=== PATIENT | female | born 2000 | race Hispanic/Latino ===

== ENCOUNTER 2021-06-11 08:41 | Emergency (ER) | payer OTHER, SELFPAY ==
[2021-06-11 08:58] VITALS: BP 179/80; PULSE 102; RESP 16; TEMP 37.1; O2SAT 99
--- NOTE | 2021-06-11 09:26 | ED.EAR ---
HPI - Ear Problem General Chief complaint: Ear Stated complaint: ear pain Source: patient, RN notes reviewed and old records reviewed Mode of arrival: ambulatory Limitations: no limitations History of Present Illness HPI Narrative: 20 year old female who presents to [facility] care with complaints of right ear pain today since 299. Patient reports that since the 04 of June she has had headache, sore throat, cough,congestion and sinus drainage, and some eye drainage. She reports that she has been using some antibiotic eye drops. Patient reports that she has had COVID vaccinations but no Booster has not had flu shot. Patient reports that she has had low grade fever has also taken some Tylenol, denies any acute chills or body aches. MD Complaint: ear pain Location: right ear Related Data Allergies Allergy/AdvReac Type Severity Reaction Status Date / Time No Known Allergies Allergy Verified 06/11/21 09:10 Review of Systems Review of Systems: CONSTITUTIONAL: Positive for low grade fever,no chills, or sweats. EYES: Denies visual changes, redness, some discharge from eyes, no pain ENT:Positive for rhinorrhea, congestion, sore throat,right otalgia. CARDIOVASCULAR: Denies chest pain, palpitations, or edema. RESPIRATORY: Positive for cough no dyspnea. GASTROINTESTINAL: Denies abdominal pain, nausea, vomiting, or diarrhea. GENITOURINARY: Denies dysuria or hematuria. SKIN: Denies rash or itching. MUSCULOSKELETAL: Denies back pain, joint pain, or myalgia. NEUROLOGIC:Positive for headache, no numbness, or weakness. PSYCHIATRIC: Denies anxiety or depression. All systems reviewed & are unremarkable except as noted in HPI and below PMFSH Past Medical History Medical History (Updated 06/12/21 @ 11:49 by Katrina Price NP) PCOS (polycystic ovarian syndrome) Surgical History Surgical History (Updated 06/12/21 @ 11:50 by Katrina Price NP) No history of previous surgery Family History Family History (Updated 06/12/21 @ 11:49 by Katrina Price NP) Father Diabetes mellitus Hypertension Grandparent Diabetes mellitus Breast cancer Mother Hypertension Social History Social History (Updated 06/12/21 @ 11:48 by Katrina Price NP) Smoking status: Never smoker Alcohol intake: never Substance use: never Living arrangements: with family Gender identity (if verbalized by the patient): Female Comments At time of signature, agree with nursing past medical, surgical, social and family history. There is no relevant family history pertinent to the presenting complaint Exam Narrative: GENERAL: Well-appearing, well-nourished, and in no acute distress. HEAD: Normocephalic, atraumatic. EYES: PERRLA and EOMI. no conjunctiva redness, some clear to minimal white eye drainage noted no pain or vision changes ENT: Nares clear, clear rhinorrhea no epistaxis. Mucous membranes moist.Right TM red and bulging no drainage noted, Left TM normal with good light reflex, throat red with no lesions or exudates, no tonsil enlargement. post nasal drainage noted. NECK: Supple.no lymphadenopathy CHEST: Clear to auscultation. No respiratory distress.dry cough SAO2 99% on room air HEART: Regular rate and rhythm. No murmur heard. Normal peripheral pulses. ABDOMEN: Soft, nontender, nondistended, normal active bowel sounds. EXTREMITIES: Normal range of motion. No edema. SKIN: Warm, dry, no rash. NEURO: No focal deficits. Alert and oriented x3. Course Course Level of Care: Express Care Visit Vital Signs Vital signs: Vital Signs Temperature 37.1 C 06/11/21 08:58 Pulse Rate 102 H 06/11/21 08:58 Respiratory Rate 16 06/11/21 08:58 Blood Pressure 179/80 H 06/11/21 08:58 Pulse Oximetry 99 06/11/21 08:58 Temperature 37.1 C 06/11/21 08:58 Pulse Rate 102 H 06/11/21 08:58 Respiratory Rate 16 06/11/21 08:58 Blood Pressure 179/80 H 06/11/21 08:58 Pulse Oximetry 99 06/11/21 08:58 Medical Decision Rene
== END 2021-06-11 10:00 | disposition home or self-care (01) ==
PROVIDERS: Emergency Provider Registered Nurse
DX: H66.91 Otitis media, unspecified, right ear (principal); Z20.822 Contact with and (suspected) exposure to COVID-19
CPT/HCPCS: 87426; 99213; C9803; G0463

== ENCOUNTER 2023-07-23 10:18 | Emergency (ER) | payer OTHER, SELFPAY ==
[2023-07-23 10:35] VITALS: BP 143/74; PULSE 78; RESP 18; TEMP 36; O2SAT 99
--- NOTE | 2023-07-23 11:39 | ED.GENADULT ---
HPI - General Adult General Chief complaint: Upper Respiratory Infection Stated complaint: Sore Throat Source: patient Mode of arrival: ambulatory Limitations: no limitations History of Present Illness HPI narrative: Patient presents for evaluation of sore throat for last 2 days. No fever, chills, nausea, vomiting, diarrhea, cough, shortness of breath, otalgia. She states one of her friends was recently ill but she is not sure what symptoms the friend was experiencing. She does not smoke. Related Data Home Medications Medication Instructions Recorded Confirmed Control 07/23/23 Allergies Allergy/AdvReac Type Severity Reaction Status Date / Time No Known Allergies Allergy Verified 07/23/23 10:27 Review of Systems Review of Systems: CONSTITUTIONAL: Denies fever, chills, or sweats. EYES: Denies visual changes, redness, or discharge. ENT: Reports sore throat. Denies rhinorrhea, congestion, or otalgia. CARDIOVASCULAR: Denies chest pain, palpitations, or edema. RESPIRATORY: Denies cough or dyspnea. GASTROINTESTINAL: Denies abdominal pain, nausea, vomiting, or diarrhea. GENITOURINARY: Denies dysuria or hematuria. SKIN: Denies rash or itching. MUSCULOSKELETAL: Denies back pain, joint pain, or myalgia. NEUROLOGIC: Denies headache, numbness, dizziness, or weakness. PSYCHIATRIC: Denies anxiety or depression. [facility] Past Medical History Medical History PCOS (polycystic ovarian syndrome) Surgical History Surgical History No history of previous surgery Family History Family History (Updated 06/12/21 @ 11:49 by Katrina Price NP) Father Diabetes mellitus Hypertension Grandparent Diabetes mellitus Breast cancer Mother Hypertension Social History Social History Smoking status: Never smoker Alcohol intake: never Substance use: never Living arrangements: with family Gender identity (if verbalized by the patient): Female Exam Narrative: GENERAL: Well-appearing, well-nourished, and in no acute distress. HEAD: Normocephalic, atraumatic. EYES: PERRLA and EOMI. ENT: Nares clear, no rhinorrhea or epistaxis. Mucous membranes moist. Bilateral tonsillar enlargement with erythema and white exudate. Uvula is midline. Bilateral TMs pearly olivier nonbulging NECK: Supple. No adenopathy or masses. No carotid bruits or JVD CHEST: Clear to auscultation. No respiratory distress. No wheezes rales or rhonchi HEART: Regular rate and rhythm. No murmur heard. Normal peripheral pulses. ABDOMEN: Soft, nontender, nondistended, normal active bowel sounds. EXTREMITIES: Normal range of motion. No edema. SKIN: Warm, dry, no rash. NEURO: No focal deficits. Alert and oriented x3. PSYCH: Normal mood and affect. Course Course Emergency Course: This is a 22 old female who presented for evaluation of sore. Strep negative however through shared decision making opted to proceed with abx therapy. Increase hydration. OTC medications for symptom management. Follow up with primary provider. Go to the ER for worsening symptoms. Pt in agreement with plan of care. Level of Care: Express Care Visit Vital Signs Vital signs: Vital Signs Temperature 36.0 C L 07/23/23 10:35 Pulse Rate 78 07/23/23 10:35 Respiratory Rate 18 07/23/23 10:35 Blood Pressure 143/74 H 07/23/23 10:35 Pulse Oximetry 99 07/23/23 10:35 Oxygen Delivery Room Air 07/23/23 10:35 Temperature 36.0 C L 07/23/23 10:35 Pulse Rate 78 07/23/23 10:35 Respiratory Rate 18 07/23/23 10:35 Blood Pressure 143/74 H 07/23/23 10:35 Pulse Oximetry 99 07/23/23 10:35 Oxygen Delivery Room Air 07/23/23 10:35 Medical Decision Making Vital Signs Vital Signs: Vital Signs Temperature 36.0 C L 07/23/23 10:35 Pulse Rate 78
== END 2023-07-23 11:19 | disposition home or self-care (01) ==
PROVIDERS: Emergency Provider Nurse Practitioner
DX: J02.9 Acute pharyngitis, unspecified (principal)
CPT/HCPCS: 87081; 87880; 99213; G0463

== ENCOUNTER 2024-04-11 12:17 | Emergency (ER) | payer OTHER, SELFPAY ==
[2024-04-11 12:20] VITALS: BP 146/84; PULSE 83; RESP 20; TEMP 36.7; O2SAT 100
--- NOTE | 2024-04-11 12:35 | ED_ITS ---
HPI - URI/Sore Throat General Chief Complaint: Upper Respiratory Infection Stated Complaint: Ear infection/swollen tonsils History of Present Illness HPI Narrative: Patient presents with a sore throat and left ear pain. Patient states her symptoms have been going on about 6 days. She is taking multiple [id number] medications for her symptoms. No shortness of breath no chest pain no trouble swallowing no drooling. Related Data Home Medications Medication Instructions Recorded Confirmed Control 07/23/23 propranolol 07/23/23 Allergies Allergy/AdvReac Type Severity Reaction Status Date / Time No Known Allergies Allergy Verified 07/23/23 10:27 Review of Systems Review of Systems: CONSTITUTIONAL: Denies chills, or sweats. Reports fever and generalized body aches EYES: Denies visual changes, redness, or discharge. ENT: Denies otalgia. Reports nasal congestion runny nose and sore throat CARDIOVASCULAR: Denies chest pain, palpitations, or edema. RESPIRATORY: Denies dyspnea. Reports occasional cough GASTROINTESTINAL: Denies abdominal pain, nausea, vomiting, or diarrhea. GENITOURINARY: Denies dysuria or hematuria. SKIN: Denies rash or itching. MUSCULOSKELETAL: Denies back pain, joint pain, or myalgia. Reports generalized body aches NEUROLOGIC: Denies headache, numbness, or weakness. PSYCHIATRIC: Denies anxiety or depression. [facility] Past Medical History Medical History PCOS (polycystic ovarian syndrome) Surgical History Surgical History No history of previous surgery Family History Family History (Updated 06/12/21 @ 11:49 by Katrina Price NP) Father Diabetes mellitus Hypertension Grandparent Diabetes mellitus Breast cancer Mother Hypertension Social History Social History Smoking status: Never smoker Alcohol intake: never Substance use: never Living arrangements: with family Gender identity (if verbalized by the patient): Female Comments At time of signature, agree with nursing past medical, surgical, social and family history. There is no relevant family history pertinent to the presenting complaint Exam Narrative: The patient is a well-developed, well-nourished in no acute distress. SKIN: Skin is warm and dry without erythema, swelling or exudate. There is good turgor. No tenting. HEAD: Atraumatic. Normocephalic. No temporal or scalp tenderness. EYES: Moist and bright. Sclera and conjunctivae normal. No discharge. PERRLA. Extraocular motions intact. Gross visual acuity intact. EARS: Pinna is normal shape and contour. Clear external auditory canals. Right TM pearly valverde with good cone of light, no erythema or suppuration. Left TM cloudy with mild erythema to canal Bilateral cerumen noted no gross hearing deficit. NOSE: pink, moist mucosa with good air movement. Clear rhinorrhea without nasal flaring. Septum midline. Mouth: moist mucous membranes. THROAT; mild erythema noted to posterior oropharynx with moderate postnasal drainage. Without exudate or ulceration.. Uvula midline. Normal movement of soft palate. NECK: Supple and nontender with full range of motion without discomfort. No meningeal signs. LUNGS: Equal and bilateral breath sounds without wheezes, rales or rhonchi. CHEST: The chest wall is without retractions or use of accessory muscles. HEART: Has a regular rate and rhythm without murmur, gallops, click or rub. ABDOMEN: Soft, nontender with positive active bowel sounds. No rebound tenderness. EXTREMITIES: Without cyanosis, clubbing or edema. Equal 2+ distal pulses and 2 second capillary refill noted. NEUROLOGIC: alert, active, . The patient moves all extremities with normal muscle strength. Normal muscle tone is noted. Normal coordination is noted. NO focal neurological findings noted. Course Course Level of Care: Express Care Visit Discharge Plan Discharge Clinical Impression: Pharyngitis, Acute otitis media, left Patient Disposition: Home, Self-Care Condition: Stable Instructions: Antibiotic Form, Ear Infection (AC) Additional Instructions: Increase fluids especially juices and water Aomy-mxo-cmluhfy cough and cold medicine of your choice for your symptoms Salt water gargles, throat lozenges or throat sprays as desired change toothbrush in 3-5 days Antibiotic as directed--finished the medication It may take the antibiotic 2-3 days to control the fever/symptoms -If you have any worsening of symptoms or any other concerns please go to the ED immediately. Prescriptions: New cetirizine [Zyrtec] 10 mg tablet 10 mg PO DAILY Qty: 14 0RF fluticasone propionate [Flonase Allergy Relief] 50 mcg/actuation spray,suspension 2 spray NASAL BID Qty: 9.9 0RF Rx Instructions: administer into each nostril amoxicillin-pot clavulanate 875-125 mg tablet 1 tablet PO Q12H 10 Days Qty: 20 0RF No Action Control amoxicillin 500 mg tablet 500 mg PO Q12H Qty: 20 0RF propranolol Follow-up/Referrals: PHYSICIAN,LAST SORTER [Primary Care Provider] - Stand Alone Forms: Work/School Release IP
[2024-04-11 12:49] LABS: EDSTREPNEGPOS1 Negative (Negative)
== END 2024-04-11 12:55 | disposition home or self-care (01) ==
PROVIDERS: Emergency Provider Nurse Practitioner Family
DX: J02.9 Acute pharyngitis, unspecified (principal); H66.92 Otitis media, unspecified, left ear; E28.2 Polycystic ovarian syndrome
CPT/HCPCS: 87081; 87880; 99213; G0463

== ENCOUNTER 2024-06-30 15:56 | Emergency (ER) | payer OTHER, SELFPAY ==
[2024-06-30 16:00] VITALS: BP 132/92; PULSE 113; RESP 20; TEMP 36.6; O2SAT 98
--- NOTE | 2024-06-30 16:01 | ED_ITS ---
HPI - URI/Sore Throat General Chief Complaint: Upper Respiratory Infection Stated Complaint: throat/heavy chest Time Seen by Provider: 06/30/24 16:07 Source: patient, RN notes reviewed and old records reviewed Mode of arrival: ambulatory Limitations: no limitations History of Present Illness HPI Narrative: 23 year old female who presents to [facility] care with complaints of sore throat, headache, right ear pain, sore right tonsil pain since yesterday and since this morning at 1100 her chest has felt heavy. Patient admits to being under extra stress at work and at home with family member with terminal illness. Patient reports that she did have low grade fever of 99.6 this morning. Patient reports that she has taken Ibuprofen for her symptoms. Patient has even nonlabored respirations, able to speak in full sentences, no tachypnea noted, SAO2 98% on room air. MD elicited complaint: fever, cough, sore throat and other (feels heavy in chest denies any dyspnea) Onset (ago): day(s) (day 2 of symptoms) Consistency: constant Severity: moderate Pain scale (0-10): 6 Able to tolerate fluids by mouth: No Exacerbating factors: swallowing Treatments prior to arrival: ibuprofen Related Data Home Medications ?Medication ?Instructions ?Recorded ?Confirmed ?Last Taken ?Type Control 07/23/23 Unknown History Allergies Allergy/AdvReac Type Severity Reaction Status Date / Time No Known Allergies Allergy Verified 06/30/24 16:09 Review of Systems Review of Systems: CONSTITUTIONAL: Reports malaise, no chills, sweats, or fever. EYES: Denies visual changes, redness, or discharge. ENT: Reports rhinorrhea, congestion, no sinus pain,right otalgia and positive for sore throat. CARDIOVASCULAR: Denies chest pain, palpitations, or edema. RESPIRATORY: Reports no acute cough.? Denies dyspnea.states some heaviness to chest GASTROINTESTINAL: Denies abdominal pain, nausea, vomiting, diarrhea SKIN: Denies rash or itching. MUSCULOSKELETAL: Denies myalgia. NEUROLOGIC: Denies headache. All systems reviewed & are unremarkable except as noted in HPI and below PMFSH Past Medical History Medical History Anxiety Ear infection PCOS (polycystic ovarian syndrome) Surgical History Surgical History No history of previous surgery Family History Family History Father Diabetes mellitus Hypertension Grandparent Diabetes mellitus Breast cancer Mother Hypertension Social History Social History Smoking status: Never smoker Alcohol intake: never Substance use: never Living arrangements: with family Gender identity (if verbalized by the patient): Female Comments At time of signature, agree with nursing past medical, surgical, social and family history. There is no relevant family history pertinent to the presenting complaint Exam Narrative: GENERAL: Well-appearing, well-nourished, and in no acute distress. HEAD: Normocephalic EYES: PERRLA, conjunctivae clear ENT: Nares clear, turbinates edematous and erythematous, clear discharge. Mucous membranes moist. TM pearly olivier with dull light reflex bilaterally; no tragal tenderness. Oropharynx erythematous without lesions. Tonsils red enlarged and with exudates, no drooling, no hoarseness, no trismus, uvula midline. NECK: Supple. lymphadenopathy CHEST: Clear to auscultation, breath sounds equal. No wheezing, rhonchi, rales, or stridor. No respiratory distress, speaks in full sentences no cough noted SAO2 98% on room air. HEART: Regular rate and rhythm. No murmur heard. SKIN: Warm, dry, no rash. NEURO: Alert and oriented x3. PSYCH: Normal mood and affect, anxious Course Course Emergency Course: Patient is aware of diagnosis, understands and agrees to treatment plan.? Anticipatory guidance given.? Patient agrees to follow-up as directed and is aware of reasons to seek care at the emergency department. Portions of this record may have been created with voice recognition software Level of Care: Express Care Visit Vital Signs Vital signs: Vital Signs Temperature 36.6 C 06/30/24 16:00 Pulse Rate 113 H 06/30/24 16:00 Respiratory Rate 20 06/30/24 16:00 Blood Pressure 132/92 H 06/30/24 16:00 Pulse Oximetry 98 06/30/24 16:00 Oxygen Delivery Room Air 06/30/24 16:00 Temperature 36.6 C 06/30/24 16:00 Pulse Rate 113 H 06/30/24 16:00 Respiratory Rate 20 06/30/24 16:00 Blood Pressure 132/92 H 06/30/24 16:00 Pulse Oximetry 98 06/30/24 16:00 Oxygen Delivery Room Air 06/30/24 16:00 Reviewed MDM - URI/Sore Throat MDM Narrative Medical decision making narrative: Differential diagnosis considered: Roberts virus, strep pharyngitis, allergic rh initis, upper respiratory tract infection, sinusitis, rhinosinusitis, nasopharyngitis. viral pharyngitis, otitis media, otitis externa, pneumonia, bronchitis, viral cough syndrome, viral syndrome, and influenza.? Exam findings show no acute concerns or changes; patient is non-toxic appearing and is in no distress.? Patient is appropriate for outpatient treatment and follow-up. Differential Diagnosis Differential diagnosis: Likely upper respiratory infection, otitis media, viral infection, pharyngitis and other (strep pharyngitis) Medical Records Attestation: I reviewed the patient's medical records. Lab Data Attestation: I reviewed the patient's lab results. Lab results narrative: strep screen positive Labs: Lab Results 06/30/24 Range/Units 16:18 POC Grp A Strep Screen Positive (Negative) Critical Care Time Critical Care Time Critical Care Time: No Discharge Plan Discharge Clinical Impression: Acute streptococcal pharyngitis Patient Disposition: Home, Self-Care Condition: Stable Instructions: Antibiotic Form, Strep Throat (ED) Additional Instructions: You tested positive for Group A strep . Take the entire course of antibiotics. Throw away your current toothbrush and begin using a new toothbrush in 48 hours in order to prevent re-infection. Sanitize all reusable water bottles . Do not share items with others. Salt water gargles may alleviate some of the throat discomfort. You can take Tylenol or ibuprofen per the package instructions for pain/fever. If your symptoms persist, change or worsen significantly before you can contact your personal physician then please, without delay, go to the emergency department for further evaluation. Follow-up with PCP in 7-10 days or sooner if needed Follow up with PCP soon in regards to your blood pressure which is elevated above threshold for referral. Blood pressure above 120/80 may indicate pre- hypertension. 132/92 Patient Language: Belarusian Prescriptions: New amoxicillin 500 mg capsule 500 mg PO Q8H 10 Days Qty: 30 0RF Rx Instructions: Take all doses No Action Control Follow-up/Referrals: PHYSICIAN,SCRUBBER SYSTEM ATTENDANT [Primary Care Provider] - Time of Disposition: 16:33 Quality Byram Coma Scale Eyes: Open Verbal: Oriented and Alert Motor: Follows Commands Marley Coma Total Score: 15
[2024-06-30 16:28] LABS: EDSTREPNEGPOS1 Positive (Negative)
--- OUTSIDE RECORDS SUMMARY | 2024-07-02 19:58 | XMS_ITS | Clinical Summary ---
Author Organization [facility] Address [address] [place] [id number] Care Team Providers Care Director Of Casework Department Name Role Phone No, Physician Primary Care Provider [phone] Allergies No known active allergies Medications No known medications Social History Tobacco Use Types Packs/Day Years Used Date Smoking Tobacco: Never Assessed Personal Safety Answer Date Recorded Getting School Help Needed Not on file 12/27 Comments Unknown Sex and Gender Information Value Date Recorded Sex Assigned at Not on file Legal Sex Female 10:08 AM CDT Gender Identity Not on file Sexual Orientation Not on file Last Filed Vital Signs Vital Sign Reading Time Taken Comments Blood Pressure 135/78 11/03/2022 7:32 PM CDT Pulse 81 11/03/2022 7:32 PM CDT Temperature 37.2 ??C (99 ??F) 11/03/2022 7:32 PM CDT Respiratory Rate 16 11/03/2022 7:32 PM CDT Oxygen Saturation 98% 11/03/2022 7:32 PM CDT Inhaled Oxygen Concentration - - Weight 90.7 kg (200 lb) 11/03/2022 5:53 PM CDT Height 154.9 cm (5' 1 ) 11/03/2022 5:53 PM CDT Body Mass Index 37.79 11/03/2022 5:53 PM CDT Plan of Treatment Health Maintenance Due Date Last Done Comments Cervical Cancer Screening 2000 Depression Screening 2000 Hepatitis C Screening 2000 DTaP/Tdap/Td Vaccine (1 - Tdap) 2011 Varicella Vaccines (1 of 2 - 13+ 2-dose series) 2013 HPV Vaccines (1 - 3-dose series) 2015 Meningococcal B Vaccine (1 o f 2 - Patient Seeks Protection) 2016 Hepatitis B Screening 2018 Regular Well Visit/Exam 18-64 2018 Influenza Vaccine (#1) 2024 Pneumococcal vaccine <65 Aged Out No longer eligible based on patient's age to complete this topic Care Teams Director Of Casework Department Relationship Specialty Start Date End Date No, Physician PCP - General 11/03/22
--- OUTSIDE RECORDS SUMMARY | 2024-07-02 19:58 | XMS_ITS | Referral Summary ---
Author Organization [facility] Building [facility] Address [address] [place] [id number] Care Team Providers Care Flamer Sealer Name Role Phone No, Physician Primary Care Provider [phone] Allergies No known active allergies Medications No [...] 11/03/2022 5:53 PM CDT Plan of Treatment Not on file Care Teams Flamer Sealer Relationship Specialty Start Date End Date No Physician PCP - General 11/03/22
== END 2024-06-30 16:37 | disposition home or self-care (01) ==
PROVIDERS: Emergency Provider Registered Nurse
DX: J02.0 Streptococcal pharyngitis (principal); E28.2 Polycystic ovarian syndrome
CPT/HCPCS: 87880; 99213; G0463

== ENCOUNTER 2024-11-03 08:13 | Emergency (ER) | payer OTHER, SELFPAY ==
--- OUTSIDE RECORDS SUMMARY | 2024-11-03 08:16 | XMS_ITS | Clinical Summary ---
Author Organization [facility] Building [facility] Address [address] [place] [address] Care Team Providers Care School Transportation Supervisor Name Role Phone No, Physician Primary Care Provider [phone] Allergies No known active allergies Medications No known medications Encounters Date Type Department Care Team Description 09/29/2024 Telephone [facility] [address] [place] [address] Peggy Navarro NP Reschedule Appointment from Last 3 Months Social History Tobacco Use Types Packs/Day Years Used Date Smoking Tobacco: Never Smokeless Tobacco: Never Tobacco Cessation:Counseling Given: Not Answered Alcohol Use Standard Drinks/Week Comments Not Currently 0 (1 standard drink = 0.6 oz pur e alcohol) Personal Safety Answer Date Recorded Have you ever been in or are you currently in a harmful physical or emotional relationship or is someone making you feel afraid or unsafe? Denies 07/03/2024 Comments No Sex and Gender Information Value Date Recorded Sex Assigned at Not on file Legal Sex Female 10:08 AM CDT Gender Identity Not on file Sexual Orientation Not on file Obstetrics History Last Filed Vital Signs Vital Sign Reading Time Taken Comments Blood Pressure 137/82 07/03/2024 4:30 AM GOLF RANGE ATTENDANT Pulse 94 07/03/2024 4:30 AM GOLF RANGE ATTENDANT Temperature 37.2 C (99 F) 07/03/2024 12:04 AM GOLF RANGE ATTENDANT Respiratory Rate 24 07/03/2024 12:04 AM GOLF RANGE ATTENDANT Oxygen Saturation 97% 07/03/2024 4:30 AM GOLF RANGE ATTENDANT Inhaled Oxygen Concentration - - Weight 96.6 kg (213 lb) 07/03/2024 12:04 AM GOLF RANGE ATTENDANT Height 154.9 cm (5' 1) 07/03/2024 12:04 AM GOLF RANGE ATTENDANT Body Mass Index 40.25 07/03/2024 12:04 AM GOLF RANGE ATTENDANT Plan of Treatment Health Maintenance Due Date Last Done Comments Cervical Cancer Screening 2000 Chlamydia and Gonorrhea (GC/CT) Screening 2000 Depression Screening 2000 Hepatitis C Screening 2000 DTaP/Tdap/Td Vaccine (1 - Tdap) 2011 Varicella Vaccines (1 of 2 - 13+ 2-dose series) 2013 HPV Vaccines (1 - 3-dose series) 2015 Hepatitis B Screening 2018 Regular Well Visit/Exam 18-64 2018 Covid-19 Vaccine ( - 2023-2 5 season) 2024 11/20/2020, 10/15/2020 Influenza Vaccine (Season Ended) 2025 05/19/2022 Pneumococcal vaccine <65 Aged Out No longer eligible based on patient's age to complete this topic Insurance [facility] Care Teams School Transportation Supervisor Relationship Specialty Start Date End Date No, Physician PCP - General 11/03/22
--- OUTSIDE RECORDS SUMMARY | 2024-11-03 08:16 | XMS_ITS | Referral Summary ---
Author Organization [facility] Office Building [address] Address [address] [place] [address] Care Team Providers Care Cream Gatherer Name Role Phone No, Physician Primary Care Provider [phone] Encounters Date Type Department Care Team Description 09/29/2024 Telephone [facility] [address] [place] [address] Peggy Navarro NP Reschedule Appointment from Last 3 Months Allergies No known active allergies Medications No [...] Comments Blood Pressure 137/82 07/03/2024 4:30 AM TRANSPLANT NURSE PRACTITIONER Pulse 94 07/03/2024 4:30 AM TRANSPLANT NURSE PRACTITIONER Temperature 37.2 C (99 F) 07/03/2024 12:04 AM TRANSPLANT NURSE PRACTITIONER Respiratory Rate 24 07/03/2024 12:04 AM TRANSPLANT NURSE PRACTITIONER Oxygen Saturation 97% 07/03/2024 4:30 AM TRANSPLANT NURSE PRACTITIONER Inhaled Oxygen Concentration - - Weight 96.6 kg (213 lb) 07/03/2024 12:04 AM TRANSPLANT NURSE PRACTITIONER Height 154.9 cm (5' 1) 07/03/2024 12:04 AM TRANSPLANT NURSE PRACTITIONER Body Mass Index 40.25 07/03/2024 12:04 AM TRANSPLANT NURSE PRACTITIONER Plan of Treatment Not on file Insurance [facility] Care Teams Cream Gatherer Relationship Specialty Start Date End Date No, Physician PCP - General 11/03/22
[2024-11-03 08:18] VITALS: BP 152/90; PULSE 86; RESP 20; TEMP 36.3; O2SAT 98
--- NOTE | 2024-11-03 08:19 | ED.URI ---
HPI - URI/Sore Throat General Chief Complaint: Upper Respiratory Infection Stated Complaint: cough,head pain, chest discomfort Time Seen by Provider: 11/03/24 08:19 Source: patient Mode of arrival: ambulatory Limitations: no limitations History of Present Illness HPI Narrative: Therese is a 24 year old female patient presenting to the clinic today with complaints of nonproductive cough, chest discomfort with coughing, and headache. She reports no fever, chills, body aches. Denies any chest pain or shortness of breath at this time. States that is only when she is coughing. Symptoms have been going on for 5 days. She works at [employer]. MD elicited complaint: sore throat and nasal congestion Related Data Home Medications ?Medication ?Instructions ?Recorded ?Confirmed ?Last Taken ?Type Control 07/23/23 Unknown History Allergies Allergy/AdvReac Type Severity Reaction Status Date / Time No Known Allergies Allergy Verified 06/30/24 16:09 Review of Systems Review of Systems: Pertinent positives per HPI. Patient denies any fever, chills, rash, headache, visual changes, dizziness, sore throat, palpitations, nausea, vomiting, diarrhea, constipation, abdominal pain, or any urinary issues. [facility] Past Medical History Medical History Anxiety Ear infection PCOS (polycystic ovarian syndrome) Surgical History Surgical History No history of previous surgery Family History Family History Father Diabetes mellitus Hypertension Grandparent Diabetes mellitus Breast cancer Mother Hypertension Social History Social History Smoking status: Never smoker Alcohol intake: never Substance use: never Living arrangements: with family Gender identity (if verbalized by the patient): Female Comments At the time of my signature, I reviewed and agree with the nursing past medical, surgical, social, and family history. There is no relevant family history pertinent to the patient complaint. Exam Narrative: General: Well-developed, obese, in no apparent distress Head: Normocephalic, atraumatic Eyes: Pupils equally round and reactive to light bilaterally, EOM intact, sclera and conjunctive clear, no discharge, lids normal Ears: TMs intact and congested, ear canals clear, no drainage, grossly hearing normal. Nose: Nares patent, clear discharge, no inflammation, no sinus tenderness. Mouth: Oropharynx without lesions or masses, good dentition, MMM. Neck: Supple, trachea midline, no enlargement of anterior or posterior cervical nodes, no thyroid masses or goiter palpable. Cardio: Regular rate and rhythm, s1 and s2 normal, no murmur appreciated. Resp: Lung sounds diminished in the bases otherwise clear, no rhonchi, rales, wheezing or rubs Course Course Emergency Course: Portions of this record may have been created with voice recognition software. Level of Care: Express Care Visit Vital Signs Vital signs: Vital Signs Temperature 36.3 C L 11/03/24 08:18 Pulse Rate 86 11/03/24 08:18 Respiratory Rate 20 11/03/24 08:18 Blood Pressure 152/90 H 11/03/24 08:18 Pulse Oximetry 98 11/03/24 08:18 Oxygen Delivery Room Air 11/03/24 08:18 Temperature 36.3 C L 11/03/24 08:18 Pulse Rate 86 11/03/24 08:18 Respiratory Rate 20 11/03/24 08:18 Blood Pressure 152/90 H 11/03/24 08:18 Pulse Oximetry 98 11/03/24 08:18 Oxygen Delivery Room Air 11/03/24 08:18 Vital signs reviewed MDM - URI/Sore Throat MDM Narrative Medical decision making narrative: At the time of visit patient is resting comfortably on the exam table. Patient appears to be nontoxic. Plan: I suspect patient has bronchitis. Prescription for albuterol inhaler, prednisone, and Tessalon Perles was sent to pharmacy. Supportive measures were discussed with the patient and they voiced understanding discharge instructions and agrees to treatment plan. Return precautions reviewed Differential Diagnosis Differential diagnosis: Likely upper respiratory infection, otitis media, sinusitis, viral infection, bronchitis, influenza, pharyngitis and other (COVID) Discharge Plan Discharge Clinical Impression: Bronchitis Patient Disposition: Home Condition: Stable Instructions: Antibiotic Form, Acute Bronchitis (ED) Additional Instructions: Take prescription medications only as prescribed-albuterol inhaler, prednisone, and Tessalon Perles Increase fluids and stay well hydrated Tylenol/motrin for pain/fever Flonase and OTC antihistamines as directed Vicks vapor rub to open sinuses Sinus rinses for congestion Cepacol spray, cough drops, throat lozenges, warm tea with honey/lemon, gargle salt water to soothe throat BRAT diet for diarrhea Clear liquids x 24 hours then advance as tolerated for nausea/vomiting Go to the ED if you develop a worsening in your condition- high fever not controlled by Tylenol or Motrin, dehydration, weakness, lethargy, shortness of breath, or chest pain. Follow up with your PCP in 3-5 days if symptoms persist. Patient Language: Mongolian Prescriptions: New benzonatate 200 mg capsule 200 mg PO TID 7 Days Qty: 21 0RF prednisone 20 mg tablet 40 mg PO DAILY 5 Days Qty: 10 0RF albuterol sulfate 90 mcg/actuation HFA aerosol inhaler 2 puff inhalation Q4-6H PRN (Reason: shortness of breath or wheezing) 30 Days Qty: 8.5 0RF No Action Control Follow-up/Referrals: PHYSICIAN,SYNTHETIC SOIL BLOCKS PULPER [Primary Care Provider] - Time of Disposition: 08:28 Quality NIHSS Nursing Documentation ED NIHSS nursing documentation: reviewed/agree
== END 2024-11-03 08:34 | disposition home or self-care (01) ==
PROVIDERS: Emergency Provider Nurse Practitioner Family
DX: J40 Bronchitis, not specified as acute or chronic (principal); E28.2 Polycystic ovarian syndrome
CPT/HCPCS: 99213; G0463

== ENCOUNTER 2024-11-21 16:50 | Emergency (ER) | payer OTHER, SELFPAY ==
--- NOTE | ~2024-11-21 | XR_ITS ---
CHEST RADIOGRAPH CLINICAL HISTORY: cough for 2.5 weeks . COMPARISON: None available TECHNIQUE: Single portable view of the chest. FINDINGS The cardiomediastinal silhouette is unremarkable. The lungs are clear. IMPRESSION: No focal infiltrate or effusion. Reviewed, dictated and finalized at location A.
--- OUTSIDE RECORDS SUMMARY | 2024-11-21 16:52 | XMS_ITS | Data Portability ---
Author Organization [place] [facility] Address [address] [place] [address] Assessment Encounter Date Assessment Date Assessment LastModified by Organization Details LastModified Time 11/11/2024 11/11/2024 allergic rhinitis vs URI vs COVID - 19 CDC guidelines discussed with the patient. Antibiotic stewardship discussed with the patient. Patient agrees with the diagnosis and treatment plan. Patient understands the limitations of telemedicine. The patient will reconnect with telemedicine or pursue an in person examination if symptoms do not resolve, improve, or new symptoms develop. [email or web address] Not available 11/11/2024 21:27:03 Plan of Treatment Reminders Order Date Submit Date Provider Last Modified By Organization Details Last Modified Time Details Appointments None recorded. Lab None recorded. Referral None recorded. Procedures None recorded. Surgeries None recorded. Imaging None recorded. Medication Orders amoxicillin 875 mg-potassiu m clavulanate 125 mg tablet 2024 025 [facility], [address] [place] [address], [id number], 21:24:09 Patient TargetsNo targets recorded. Patient Instructions Encounter Date Encounter Id Patient Instructions Last Modified By Organization Details Last Modified Time 11/11/2024 [id number] upper respirator y infection (cold): care instructions [email or web address] Not available 11/11/2024 21:24:02 Reason for Referral None Reported. Problems Name Problem SNOMED Code Status Onset Date Resolution Date Notes Provider Name and Address Organization Details Recorded Time Seasonal allergy 433060438 Active 025 Bennie Blank, DO 1 [facility] [address], [place], [address], [place] [facility] 21:12:57 Problem Notes None recorded. Medical Equipment None Reported. Allergies No known drug allergies Medications Name Sig Start Date Stop Date Status Note LastModified by Organization Details LastModified Time amoxicillin 875 mg-potassium clavulanate 125 mg tablet Take 1 tablet every 12 hours by oral route as directed for 10 days. 2024 active Not Available Not Available Not Avai lable cetirizine active Not Available Not Av ailable Not Available Mucinex active Not Available Not Avail able Not Available .11/06 (28) active Not Available Not Available Not Available Vitals None Recorded Social History None recorded. Functional Status Question Answer Note LastModified by Organizat ion Details LastModified Time Do you use any illicit or recreational drugs? No [email or web address] Information not available 11/11/2024 What is your level of alcohol consumption? Occasional [email or web address] Information not available 11/11/2024 Mental Status None recorded. Family History Nothing Reported. Medical History No medical history recorded. Gynecological HistoryNo gynecological history recorded. Obstetrics History GPAL:G 0 P 0 0 0 0 Past Encounters Encounter ID Performer Location Encounter Start Date Encounter Closed Date Diagnosis/Indication Diagnosis SNOMED-CT Code Diagnosis ICD10 Code Diagnosis Note [id number] Bennie Blank DO [facility] [address] [place] [address] 11/11/2024 21:01:31 11/11/2024 21:29:15 Acute upper respiratory infection 80397978 J06.9 Health Concerns Section Related Observation LastModified by Organization Detai ls LastModified Time None Recorded Concern Status LastModified by Organization Details LastModified Time None Recorded Advance Directives Directive None Recorded Payers Insurance Date Sequence Insurance Name Policy Number Policy Barlow Covered Member ID Barlow Member ID Guarantor Name 11/11/2024 2 *SELF PAY* [id number] Therese Olivas [id number] Therese Olivas 11/11/2024 1 *SELF PAY* Me barrera Olivas 11/11/2024 1 [facility] [id number] Therese Olivas [id number] Therese Olivas 11/11[facility]20[id number] Therese Olivas [id number] Therese Olivas Notes Date Note Type Note Provider Name and Address Organization Details Recorded Time 11/11/2024 text/html 24 yo female presents c/o sinus congestion, non productive cough, shortness of breath with coughing, and headache for 2 weeks. Patient completed Prednisone 40 mg (5 day course) on 11/07/2024. Patient has been taking Mucinex. Patient denies fever, chills, or wheezing. Patient went to urgent care on 11/03/2024 where she was diagnosed with acute bronchitis. Bennie Blank, DO 1 [facility] [address], [place], [address], [facility] 11/11/2024 21:27:24 OBGyn Episode No OBEpisode recorded.
--- OUTSIDE RECORDS SUMMARY | 2024-11-21 16:52 | XMS_ITS | Referral Summary ---
Author Organization [facility] Office Building [facility] Address [address] [place] [address] Care Team Providers Care Quality Officer Name Role Phone No, Physician Primary Care Provider [phone] Encounters Date Type Department Care Team Description 09/29/2024 Telephone [facility] [address] [place] [address] Peggy Navarro NP Reschedule Appointment [...] Comments Blood Pressure 137/82 07/03/2024 4:30 AM STREETCAR CONDUCTOR Pulse 94 07/03/2024 4:30 AM STREETCAR CONDUCTOR Temperature 37.2 C (99 F) 07/03/2024 12:04 AM STREETCAR CONDUCTOR Respiratory Rate 24 07/03/2024 12:04 AM STREETCAR CONDUCTOR Oxygen Saturation 97% 07/03/2024 4:30 AM STREETCAR CONDUCTOR Inhaled Oxygen Concentration - - Weight 96.6 kg (213 lb) 07/03/2024 12:04 AM STREETCAR CONDUCTOR Height 154.9 cm (5' 1) 07/03/2024 12:04 AM STREETCAR CONDUCTOR Body Mass Index 40.25 07/03/2024 12:04 AM STREETCAR CONDUCTOR Plan of Treatment Not on file Insurance [facility] Care Teams Quality Officer Relationship Specialty Start Date End Date No, Physician PCP - General 11/03/22
--- OUTSIDE RECORDS SUMMARY | 2024-11-21 16:53 | XMS_ITS | Clinical Summary ---
Author Organization [facility] Medical Office Building [address] Address [address] [place] [address] Care Team Providers Care Front Desk Coordinator Name Role Phone No, Physician Primary Care Provider [phone] Allergies No known active allergies Medications No known medications Encounters Date Type Department Care Team Description 09/29/2024 Telephone [facility] [address] [place] [address] Peggy Navarro NP Reschedule Appointment [...] Comments Blood Pressure 137/82 07/03/2024 4:30 AM FIREARMS INSTRUCTOR Pulse 94 07/03/2024 4:30 AM FIREARMS INSTRUCTOR Temperature 37.2 C (99 F) 07/03/2024 12:04 AM FIREARMS INSTRUCTOR Respiratory Rate 24 07/03/2024 12:04 AM FIREARMS INSTRUCTOR Oxygen Saturation 97% 07/03/2024 4:30 AM FIREARMS INSTRUCTOR Inhaled Oxygen Concentration - - Weight 96.6 kg (213 lb) 07/03/2024 12:04 AM FIREARMS INSTRUCTOR Height 154.9 cm (5' 1) 07/03/2024 12:04 AM FIREARMS INSTRUCTOR Body Mass Index 40.25 07/03/2024 12:04 AM FIREARMS INSTRUCTOR Plan of Treatment Health Maintenance Due Date [...] patient's age to complete this topic Insurance [facility] H[facility]/PPO Address: [facility] [address] [place] [address] Care Teams Front Desk Coordinator Relationship Specialty Start Date End Date No, Physician PCP - General 11/03/22
[2024-11-21 16:56] VITALS: BP 180/91; PULSE 108; RESP 20; TEMP 36.6; O2SAT 100
--- NOTE | 2024-11-21 17:35 | ED.URI ---
HPI - URI/Sore Throat General Chief Complaint: Upper Respiratory Infection Stated Complaint: cough Time Seen by Provider: 11/21/24 17:15 Source: patient and RN notes reviewed Mode of arrival: ambulatory Limitations: no limitations History of Present Illness HPI Narrative: 24-year-old female presents Express Care complaining of cough for approximately 2.5 weeks. Patient says she was here approximately 2.5 weeks ago and was prescribed albuterol inhaler, Tessalon Perles, and prednisone for bronchitis. Patient said she did not feel any better and did a tele doc visit and was prescribed Augmentin for sinusitis is currently finishing treatment for that. Patient reports her cough is not getting much better. Patient reports having a productive cough and coughing up white sputum. Patient says her coughing is worse in the morning when she is laying down at night. Patient denies any chest pain or shortness of breath, wheezing, or any upper respiratory symptoms. Patient denies any history of asthma or lung disease. She does not smoke. Patient states the cough does not get worse when she exercises. Patient states she coughs so much at times that she will become incontinent of urine feels like she has to vomit because of coughing. Related Data Home Medications ?Medication ?Instructions ?Recorded ?Confirmed ?Last Taken ?Type Control 07/23/23 Unknown History amoxicillin 875 mg-potassium tablet 11/21/24 Unknown History clavulanate 125 mg tablet Allergies Allergy/AdvReac Type Severity Reaction Status Date / Time No Known Allergies Allergy Verified 06/30/24 16:09 Review of Systems Review of Systems: CONSTITUTIONAL: Denies fever, chills, or sweats. EYES: Denies visual changes, redness, or discharge. ENT: Denies rhinorrhea, congestion, sore throat, or otalgia. CARDIOVASCULAR: Denies chest pain, palpitations, or edema. RESPIRATORY: Positive for cough. Negative for wheezing or Dyspnea. GASTROINTESTINAL: Denies abdominal pain, nausea, vomiting, or diarrhea. GENITOURINARY: Denies dysuria or hematuria. SKIN: Denies rash or itching. MUSCULOSKELETAL: Denies back pain, joint pain, or myalgia. NEUROLOGIC: Denies headache, numbness, or weakness. PSYCHIATRIC: Denies anxiety or depression. All other systems reviewed are negative, except as documented in HPI. [facility] Past Medical History Medical History Anxiety Ear infection PCOS (polycystic ovarian syndrome) Surgical History Surgical History No history of previous surgery Family History Family History Father Diabetes mellitus Hypertension Grandparent Diabetes mellitus Breast cancer Mother Hypertension Social History Social History Smoking status: Never smoker Alcohol intake: never Substance use: never Living arrangements: with family Gender identity (if verbalized by the patient): Female Comments At the time of my signature, I reviewed and agree with the nursing past medical, surgical, social, and family history. There is no relevant family history pertinent to the patient complaint. Exam Narrative: GENERAL: This is a well-nourished, well-developed adult, in no apparent distress. They are non ill-appearing, nontoxic appearing. HEAD: normocephalic, atraumatic. EYES: Sclera clear/white. Conjunctiva normal. Vision is grossly intact. Extraocular movements intact EARS: External ears normal, auditory canals clear and without drainage, TMs normal without perforation. Hearing grossly intact. NOSE: External nose normal with no obvious nasal discharge, nasal turbinates without redness, no rhinorrhea. THROAT: Mucous membranes moist, posterior pharynx clear, without erythema or swelling. Uvula midline. NECK: Neck supple, non-tender without lymphadenopathy, masses or thyromegaly. CARDIOVASCULAR: Regular rate and rhythm without murmurs, gallops, or rubs. RESPIRATORY: Clear to auscultation. Breath sounds equal bilaterally. No wheezes, rales, or rhonchi. Respiratory rate normal, respiratory effort nonlabored, no respiratory distress SKIN: warm, Dry, intact with no suspicious lesions or rash, good texture and turgor. NEURO: awake, alert, and oriented to person, place and time. There were no obvious focal neurologic abnormalities. EXTREMITIES: No joint tenderness, effusion, or edema noted. BACK: Nontender without deformity. No CVA tenderness. Course Course Emergency Course: Portions of this record may have been created with voice recognition software Level of Care: Express Care Visit Vital Signs Vital signs: Vital Signs Temperature 97.8 F 11/21/24 16:56 Pulse Rate 108 H 11/21/24 16:56 Respiratory Rate 20 11/21/24 16:56 Blood Pressure 180/91 H 11/21/24 16:56 Pulse Oximetry 100 11/21/24 16:56 Oxygen Delivery Room Air 11/21/24 16:56 Temperature 97.8 F 11/21/24 16:56 Pulse Rate 108 H 11/21/24 16:56 Respiratory Rate 20 11/21/24 16:56 Blood Pressure 180/91 H 11/21/24 16:56 Pulse Oximetry 100 11/21/24 16:56 Oxygen Delivery Room Air 11/21/24 16:56 Reviewed MDM - URI/Sore Throat MDM Narrative Medical decision making narrative: Chest x-ray showed no evidence of pneumonia or acute findings. Patient likely has a post viral cough syndrome. Discussed physical exam findings. Advised supportive measures and signs/symptoms to go to the ER. Pt is appropriate for outpt treatment and f/u. Discussed with patient about elevated blood pressure. Patient denies any history of hypertension. Patient is asymptomatic, no headaches, vision changes, chest pain, or any symptoms. Patient did take a decongestant yesterday. Advised to avoid decongestants until her blood pressure is evaluated. Differential Diagnosis Differential diagnosis: Likely upper respiratory infection, sinusitis and other (Post viral cough, acid reflux) Critical Care Time Critical Care Time Critical Care Time: No Discharge Plan Discharge Clinical Impression: Post-viral cough syndrome Patient Disposition: Home Condition: Stable Instructions: Acute Cough (ED) Additional Instructions: Your chest x-ray was negative for any acute findings or evidence of pneumonia. It is possible you have a postviral cough this is normally self-limiting but however it may last up to 8 weeks. Please take benzonatate tablets as needed for cough. You may also use cough drops to help with your cough. Use a warm humidifier at night. Drink plenty of fluids. He developed shortness of breath, fevers, chest pains, or any other concerns please go to the ER immediately. Your blood pressure was elevated above 120/80 today at urgent care. This puts you above the threshold for follow-up. Please schedule a follow-up with your personal physician as soon as possible for further evaluation and treatment even blood pressures exceeding 120/80 may indicate pre-hypertension. Patient Language: Bermudian Prescriptions: New benzonatate 100 mg capsule 100 mg PO TID PRN (Reason: cough) Qty: 30 0RF No Action Control albuterol sulfate 90 mcg/actuation HFA aerosol inhaler 2 puff inhalation Q4-6H PRN (Reason: shortness of breath or wheezing) 30 Days Qty: 8.5 0RF amoxicillin-pot clavulanate 875-125 mg tablet Follow-up/Referrals: PHYSICIAN,VISUAL BASIC .NET DEVELOPER [Primary Care Provider] - Time of Disposition: 18:12
== END 2024-11-21 18:18 | disposition home or self-care (01) ==
DX: R05.8 Other specified cough (principal); E28.2 Polycystic ovarian syndrome
CPT/HCPCS: 71046; 99213; G0463

== ENCOUNTER 2024-12-13 10:18 | Emergency (ER) | payer OTHER, SELFPAY ==
--- NOTE | ~2024-12-13 | XR_ITS ---
CHEST RADIOGRAPH, PA AND LATERAL CLINICAL HISTORY: productive cough x 6 weeks . COMPARISON: 11/21/2024 TECHNIQUE: PA and lateral views of the chest. FINDINGS The cardiomediastinal silhouette is unremarkable. Peribronchial thickening is present. The remainder of the lungs are otherwise clear. IMPRESSION: Peribronchial thickening, without focal infiltrate or effusion. Reviewed, dictated and finalized at location A.
--- OUTSIDE RECORDS SUMMARY | 2024-12-13 10:21 | XMS_ITS | Clinical Summary ---
Author Organization [facility] Address [address] [place] [address] Care Team Providers Care Web Content Developer Name Role Phone No, Physician Primary Care Provider [phone] Allergies No known active allergies Medications No known medications Encounters Date Type Department Care Team Description 09/29/2024 Telephone [facility] [address] [place] [address] Peggy Navarro NP Reschedule Appointment [...] Comments Blood Pressure 137/82 07/03/2024 4:30 AM OFFAL ROLLER Pulse 94 07/03/2024 4:30 AM OFFAL ROLLER Temperature 37.2 C (99 F) 07/03/2024 12:04 AM OFFAL ROLLER Respiratory Rate 24 07/03/2024 12:04 AM OFFAL ROLLER Oxygen Saturation 97% 07/03/2024 4:30 AM OFFAL ROLLER Inhaled Oxygen Concentration - - Weight 96.6 kg (213 lb) 07/03/2024 12:04 AM OFFAL ROLLER Height 154.9 cm (5' 1) 07/03/2024 12:04 AM OFFAL ROLLER Body Mass Index 40.25 07/03/2024 12:04 AM OFFAL ROLLER Plan of Treatment Health Maintenance Due Date [...] patient's age to complete this topic Insurance [facility] HMO/PPO Address: [facility] [address] [place] [address] Care Teams Web Content Developer Relationship Specialty Start Date End Date No, Physician PCP - General 11/03/22
--- OUTSIDE RECORDS SUMMARY | 2024-12-13 10:21 | XMS_ITS | Data Portability ---
Author Organization [place] [facility] , [facility] [place] Address [address] [place] [address] Assessment Encounter Date Assessment Date Assessment LastModified [...] not resolve, improve, or new symptoms develop. [email or web address] Not available 11/11/2024 21:27:03 Plan of Treatment Reminders Order Date Submit Date Provider Last Modified By Organization Details Last Modified Time Details Appointments None recorded. Lab None recorded. Referral None recorded. Procedures None recorded. Surgeries None recorded. Imaging None recorded. Medication Orders amoxicillin 875 mg-potassiu m clavulanate 125 mg tablet 2024 025 [facility], [address] [place] [address], [id number], 21:24:09 Patient TargetsNo targets recorded. Patient Instructions Encounter Date Encounter Id Patient Instructions Last Modified By Organization Details Last Modified Time 11/11/2024 [id number] upper respirator y infection (cold): care instructions Not available 11/11/2024 21:24:02 Reason for Referral None Reported. Problems Name Problem SNOMED Code Status Onset Date Resolution Date Notes Provider Name and Address Organization Details Recorded Time Seasonal allergy 139914627 Active 025 Bennie Blank, DO 1 [facility] [address], [place], [address], [facility] 21:12:57 Problem Notes None recorded. Medical Equipment [...] Not Available Not Avail able Not Available (28) active Not Available Not Available Not Available Vitals None Recorded Social History None recorded. Functional Status Question Answer Note LastModified by Organizat ion Details LastModified Time Do you use any illicit or recreational drugs? No [email or web address] Information not available 11/11/2024 What is your level of alcohol consumption? Occasional [email or web address] Information not available 11/11/2024 Mental Status None recorded. Family History Nothing Reported. Medical History No medical history recorded. Gynecological HistoryNo gynecological history recorded. Obstetrics History GPAL:G 0 P 0 0 0 0 Past Encounters Encounter ID Performer Location Encounter Start Date Encounter Closed Date Diagnosis/Indication Diagnosis SNOMED-CT Code Diagnosis ICD10 Code Diagnosis Note [id number] Bennie Blank, [facility] [address] [facility] [place] [address] 11/11/2024 21:01:31 11/11/2024 21:29:15 Acute upper respiratory infection 82369434 J06.9 Health Concerns Section Related Observation LastModified by Organization Detai ls LastModified Time None Recorded Concern Status LastModified by Organization Details LastModified Time None Recorded Advance Directives Directive None Recorded Payers Insurance Date Sequence Insurance Name Policy Number Policy Barlow Covered Member ID Barlow Member ID Guarantor Name 11/11/2024 2 *SELF PAY* [id number] Therese Olivas [id number] Therese Olivas 11/11/2024 1 *SELF PAY* Me barrera Olivas 11/11/2024 1 [facility] [id number] Therese Olivas [id number] Therese Olivas 11/11/2024 [facility] [id number] Therese Olivas [id number] Therese Olivas Notes Date Note Type [...] with acute bronchitis. Bennie Blank, DO 1 [facility] [address], [place], [address], [facility] - [facility] 11/11/2024 21:27:24 OBGyn Episode No OBEpisode recorded.
--- OUTSIDE RECORDS SUMMARY | 2024-12-13 10:21 | XMS_ITS | Referral Summary ---
Author Organization [facility] Building [facility] Address [address] [place] [address] Care Team Providers Care Buying Intern Name Role Phone No, Physician Primary Care Provider [phone] Encounters Date Type Department Care Team Description 09/29/2024 Telephone [facility] [address] [place] [address] Peggy Navarro NP Reschedule Appointment [...] Comments Blood Pressure 137/82 07/03/2024 4:30 AM WRECKER OPERATOR Pulse 94 07/03/2024 4:30 AM WRECKER OPERATOR Temperature 37.2 C (99 F) 07/03/2024 12:04 AM WRECKER OPERATOR Respiratory Rate 24 07/03/2024 12:04 AM WRECKER OPERATOR Oxygen Saturation 97% 07/03/2024 4:30 AM WRECKER OPERATOR Inhaled Oxygen Concentration - - Weight 96.6 kg (213 lb) 07/03/2024 12:04 AM WRECKER OPERATOR Height 154.9 cm (5' 1) 07/03/2024 12:04 AM WRECKER OPERATOR Body Mass Index 40.25 07/03/2024 12:04 AM WRECKER OPERATOR Plan of Treatment Not on file Insurance [facility] Care Teams Buying Intern Relationship Specialty Start Date End Date No, Physician PCP - General 11/03/22
--- NOTE | 2024-12-13 10:32 | ED.URI ---
HPI - URI/Sore Throat General Chief Complaint: Upper Respiratory Infection Stated Complaint: bronchitis Time Seen by Provider: 12/13/24 10:45 Source: patient Mode of arrival: ambulatory Limitations: no limitations History of Present Illness HPI Narrative: Therese is a 24-year-old female patient presenting to the clinic today with complaints of cough x6 weeks. She was seen twice for bronchitis/post viral cough. No current URI symptoms. Was given prednisone, albuterol inhaler, Augmentin, and Tessalon Perles from those past visits. States she still has lingering cough. Cough so hard she throws up and has stress incontinence. Denies any chest pain but does report some shortness of breath with activity. Cough is productive with some clear phlegm but at times has is yellow. No fevers, chills, body aches. No recent travel or trauma. Does take control. She is a nonsmoker. Related Data Home Medications ?Medication ?Instructions ?Recorded ?Confirmed ?Last Taken ?Type norethindrone 1 mg-ethinyl 1 tablet PO DAILY 12/13/24 12/13/24 Unknown History estradiol 20 mcg (24)-iron 75 mg (4) tablet Allergies Allergy/AdvReac Type Severity Reaction Status Date / Time No Known Allergies Allergy Verified 12/13/24 10:39 Review of Systems Review of Systems: Pertinent positives per HPI. Patient denies any fever, chills, rash, headache, visual changes, dizziness, chest pain, palpitations, nausea, vomiting, diarrhea, constipation, abdominal pain, or any urinary issues. REPLACED BY [facility] Past Medical History Medical History Anxiety Ear infection PCOS (polycystic ovarian syndrome) Surgical History Surgical History No history of previous surgery Family History Family History Father Diabetes mellitus Hypertension Grandparent Diabetes mellitus Breast cancer Mother Hypertension Social History Social History Smoking status: Never smoker Alcohol intake: never Substance use: never Living arrangements: with family Gender identity (if verbalized by the patient): Female Comments At the time of my signature, I reviewed and agree with the nursing past medical, surgical, social, and family history. There is no relevant family history pertinent to the patient complaint. Exam Narrative: General: Well-developed, obese, in no apparent distress Head: Normocephalic, atraumatic Eyes: Pupils equally round and reactive to light bilaterally, EOM intact, sclera and conjunctive clear, no discharge, lids normal Ears: TMs intact and clear, ear canals clear, no drainage, grossly hearing normal. Nose: Nares patent, no discharge, no inflammation, no sinus tenderness. Mouth: Oral pharynx without lesions or masses, good dentition, MMM. Neck: Supple, trachea midline, no enlargement of anterior or posterior cervical nodes, no thyroid masses or goiter palpable. Cardio: Regular rate and rhythm, s1 and s2 normal, no murmur appreciated. Resp: Diminished in the bases, no rhonchi, rales, wheezing or rubs Course Course Emergency Course: Portions of this record may have been created with voice recognition software. Level of Care: Express Care Visit Vital Signs Vital signs: Vital Signs Temperature 36.0 C L 12/13/24 10:35 Pulse Rate 70 12/13/24 10:35 Respiratory Rate 18 12/13/24 10:35 Blood Pressure 147/90 H 12/13/24 10:35 Pulse Oximetry 99 12/13/24 10:35 Oxygen Delivery Room Air 12/13/24 10:35 Temperature 36.0 C L 12/13/24 10:35 Pulse Rate 70 12/13/24 10:35 Respiratory Rate 18 12/13/24 10:35 Blood Pressure 147/90 H 12/13/24 10:35 Pulse Oximetry 99 12/13/24 10:35 Oxygen Delivery Room Air 12/13/24 10:35 Vital signs reviewed MDM - URI/Sore Throat MDM Narrative Medical decision making narrative: At the time of visit patient is resting comfortably on the exam table. Patient appears to be nontoxic. Diagnostics: Chest x-ray shows peribronchial thickening otherwise normal Plan: I suspect patient has bronchitis. Prescription for azithromycin and Medrol Dosepak was sent to the pharmacy. Supportive measures were discussed with the patient and they voiced understanding discharge instructions and agrees to treatment plan. Return precautions reviewed Differential Diagnosis Differential diagnosis: Likely upper respiratory infection, otitis media, sinusitis, viral infection, bronchitis, influenza, pharyngitis and other (COVID) Imaging Data Radiologist's impression: ITS Impressions Chest X-Ray 12/13/24 10:59 IMPRESSION: Peribronchial thickening, without focal infiltrate or effusion. Discharge Plan Discharge Clinical Impression: Bronchitis Patient Disposition: Home Condition: Stable Instructions: Antibiotic Form, Acute Bronchitis (ED) Additional Instructions: Chest x-ray shows peribronchial thickening-likely due to bronchitis Take medications as prescribed-Medrol Dosepak and azithromycin Increase fluids and stay well hydrated Tylenol/motrin for pain/fever Flonase and OTC antihistamines as directed Vicks vapor rub to open sinuses Sinus rinses for congestion Cepacol spray, cough drops, throat lozenges, warm tea with honey/lemon, gargle salt water to soothe throat BRAT diet for diarrhea Clear liquids x 24 hours then advance as tolerated for nausea/vomiting Go to the ED if you develop a worsening in your condition- high fever not controlled by Tylenol or Motrin, dehydration, weakness, lethargy, shortness of breath, or chest pain. Follow up with your PCP in 3-5 days if symptoms persist. Patient Language: Mongolian Prescriptions: New methylprednisolone [Medrol (Yohannes)] 4 mg tablets,dose pack See Rx Instructions PO .COMPLEX Qty: 21 0RF Rx Instructions: orally per package directions azithromycin 250 mg tablet See Rx Instructions .ROUTE .COMPLEX Qty: 6 0RF Rx Instructions: For 250 mg dose pack: take 500 mg today (day 1), then 250 mg for 4 days (days 2-5) No Action albuterol sulfate 90 mcg/actuation HFA aerosol inhaler 2 puff inhalation Q4-6H PRN (Reason: shortness of breath or wheezing) 30 Days Qty: 8.5 0RF norethindrone-e.estradiol-iron 1 mg-20 mcg (24)/75 mg (4) tablet 1 tablet PO DAILY Follow-up/Referrals: PHYSICIAN,PATIENT SERVICES MANAGER [Primary Care Provider] - Time of Disposition: 11:05 Quality NIHSS Nursing Documentation ED NIHSS nursing documentation: reviewed/agree
[2024-12-13 10:35] VITALS: BP 147/90; PULSE 70; RESP 18; TEMP 36; O2SAT 99
== END 2024-12-13 11:08 | disposition home or self-care (01) ==
PROVIDERS: Emergency Provider Nurse Practitioner Family; Referring Provider Emergency Medicine
DX: J40 Bronchitis, not specified as acute or chronic (principal); E28.2 Polycystic ovarian syndrome
CPT/HCPCS: 71046; 99213; G0463